=== PATIENT | male | born 2000 | race Caucasian/White ===

== ENCOUNTER 2024-12-30 07:58 | Emergency (ER) | payer OTHER, SELFPAY ==
[2024-12-30 08:02] VITALS: BP 113/89; PULSE 75; RESP 18; TEMP 36.9; O2SAT 98; BMI 40.9
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
[2024-12-30 09:09] VITALS: BP 113/89; PULSE 75; RESP 18; TEMP 36.9; O2SAT 98
== END 2024-12-30 09:09 | disposition home or self-care (01) ==
PROVIDERS: Emergency Provider Emergency Medicine; PCP Pediatrics
DX: S29.012A Strain of muscle and tendon of back wall of thorax, initial encounter (principal); V43.52XA Car driver injured in collision with other type car in traffic accident, initial encounter; Y93.9 Activity, unspecified; Y92.9 Unspecified place or not applicable; Y99.9 Unspecified external cause status; M54.9 Dorsalgia, unspecified
CPT/HCPCS: 99283